=== PATIENT | male | born 1990 | race Caucasian/White ===

== ENCOUNTER 2016-12-02 01:09 | Emergency (ER) | payer OTHER ==
[~2016-12-02] VITALS: Ht 177.8 cm; Wt 99.8 kg
[~2016-12-02 01:09] MED LIST: LEVO500T69 PO; ONDAN4ODT PO; PANT40SU PO; PANT40TA2 PO
--- OUTSIDE RECORDS SUMMARY | 2016-12-02 01:15 | XMS REPORT | Continuity of Care Document ---
Demographics Preferred Language Unknown Marital Status Unknown Judaism Affiliation Unknown Race Unknown Ethnic Group Unknown Author Author [facility] Address Unknown Phone Unavailable Allergies Active Description Code Type Severity Reaction Onset Reported/Identified Relationship to Patient Clinical Status Yes No Known Drug Allergies [id number] Drug Allergy Unknown N/ A 01/16/2012 Medications Problems Date Dx Coded Attending Type Code Diagnosis Diagnosed By 01/16/2012 Ot 276.51 DEHYDRATION 01/16/2012 Ot 590.80 PYELONEPHRITIS NOS 01/16/2012 Ot 787.03 VOMITING ALONE 01/17/2012 590.80 PYELONEPHRITIS UNSPECIFIED 04/07/2015 DREW CLAYTON APRN Ot 780.2 SYNCOPE AND COLLAPSE 12/05/2015 DRWE CLAYTON APRN Ot K52.9 NONINFECTIVE GASTROENTERITIS AND COLITIS 12/05/2015 DREW CLAYTON APRN Ot N28.1 CYST OF KIDNEY, ACQUIRED 12/07/2015 ROSALIND CHOWDARY, ABDI Almendarez Ot A08.4 VIRAL INTESTINAL INFECTION, UNSPECIFIED 12/07/2015 ABDI BOYER MD Ot E86.0 DEHYDRATION Procedures Results Encounters ACCT No. Visit Date/Time Discharge Status Pt. Type Provider Facility Loc./Unit Complaint [id number] 06/06/2012 10:24:00 06/06/2012 23: 59:59 CLS Outpatient [id number] 10/29/2012 15:06:45 RECURRING
[2016-12-02] MEDS ORDERED: HYDR-3874 PO (01:35)
[2016-12-02] MEDS ORDERED: AMOX875T2 PO (01:35)
[2016-12-02] MEDS ORDERED: RX-TRAMADOL 50 MG (ULTRAM) TAB PPK#4 PO STA (01:36)
--- NOTE | 2016-12-02 01:36 | ED EENT ---
History of Present Illness General Chief Complaint: Dental Problems/Pain Stated Complaint: DENTAL PAIN Nursing Triage Note: PT TO ED W/ C/O RT SIDE DENTAL PAIN X4 DAYS. REPORTS UNABLE TO GET INTO DENTIST FOR A MONTH. Source: patient Exam Limitations: no limitations History of Present Illness Time seen by provider: 01:32 Initial Comments Patient complains of right lower tooth pain for the past 4 days. It is getting worse. He denies fevers. Pain is worse with chewing or cold. He has called the dentist but is unable to get in a timely manner. Allergies and Home Medications Allergies Coded Allergies: No Known Drug Allergies (Unverified , 01/16/12) Home Medications Levofloxacin 500 Mg Tab #10 1 EACH PO DAILY Prescribed by: BLANCA SANTOYO MD on 01/16/12 1658 Ondansetron Hcl 4 Mg Tab #10 4 MG PO Q4H Prescribed by: BLANCA SANTOYO MD on 01/16/12 1658 Pantoprazole Sodium 40 Mg Tablet.dr #30 40 MG PO DAILY Prescribed by: KAYLYN AMBRIZ on 12/07/15 0557 Review of Systems Constitutional: no symptoms reportedNo fever Mouth: pain Past Dengdbb-Dwcvum-Wotbii Hx Patient Social History Alcohol Use: Denies Use Recreational Drug Use: No Smoking Status: Never a Smoker Recent Foreign Travel: No Contact w/Someone Who Travel: No Recent Infectious Disease Expo: No Recent Hopitalizations: No Seasonal Allergies Seasonal Allergies: No Surgeries HX Surgeries: No Respiratory Hx Respiratory Disorders: No Cardiovascular Hx Cardiac Disorders: No Neurological Hx Neurological Disorders: No Reproductive System Hx Reproductive Disorders: No Genitourinary Hx Genitourinary Disorders: No Gastrointestinal Hx Gastrointestinal Disorders: Yes Gastrointestinal Disorders: Ulcer Musculoskeletal Hx Musculoskeletal Disorders: No Endocrine Hx Endocrine Disorders: No HEENT HX ENT Disorders: No Cancer Hx Cancer: No Psychosocial Hx Psychiatric Problems: No Integumentary HX Skin/Integumentary Disorder: No Blood Transfusions Hx Blood Disorders: No Adverse Reaction to a Blood Tr: No Reviewed Nursing Assessment Reviewed/Agree w Nursing PMH: Yes Family Medical History Significant Family History: No Pertinent Family Hx Physical Exam Vital Signs Vital Sign - Last 12Hours 12/02/16 01:14 Temp 97.6 Pulse 83 Resp 20 B/P 143/92 Pulse Ox 99 O2 Delivery Room Air General Appearance: WD/WN mild distress other (no facial swelling) Eyes: bilateral eye EOMI, bilateral eye PERRL Mouth/Throat: pharynx normal other (right lower first molar carious with surrounding gingival inflammation, no abscess seen) Neck: suppleNo lymphadenopathy (R), No lymphadenopathy (L) Cardiovascular: regular rate, rhythm no edema Respiratory: lungs clear normal breath sounds Gastrointestinal: soft Neurologic/Psychiatric: alert normal mood/affect Skin: normal color warm/dry Progress/Results/Core Measures Results/Orders Vital Signs/I&O Vital Sign - Last 12Hours 12/02/16 01:14 Temp 97.6 Pulse 83 Resp 20 B/P 143/92 Pulse Ox 99 O2 Delivery Room Air Blood Pressure Mean: 109 Departure Impression Impression: Primary Impression: Pain, dental Disposition: HOME, SELF-CARE Condition: Stable Departure-Patient Inst. Decision time for Depature: 01:34 Referrals: NO,LOCAL PHYSICIAN (PCP/Family) Primary Care Physician Patient Instructions: Dental Pain (DC) Add. Discharge Instructions: See dentist as soon as possible. All discharge instructions reviewed with patient and/or family. Voiced understanding. Scripts Hydrocodone/Acetaminophen (Lorcet 5-325 mg Tablet)1 Each Tablet1-2 Each PO Q4H PRN PAIN #14 TAB Prov:ROBEL JOHNSON MD 12/02/16 Amoxicillin 875 Mg [id number] Mg PO BID #14 TAB Prov:ROBEL JOHNSON MD 12/02/16 ROBEL JOHNSON MD Dec 02, 2016 01:35
[2016-12-02] MEDS ORDERED: AMOXICILLIN 500 MG (POLYMOX) CAP PO STA (01:40)
[2016-12-02 01:45] VITALS: BP 0/0
[2016-12-02] MEDS ORDERED: AMOXICILLIN 250 MG (POLYMOX) CAP PO SCH (01:45)
[2016-12-02] MEDS ORDERED: oxyCODONE/APAP 5/325MG (PERCOCET 5) TABLET PO ONE (01:45)
== END 2016-12-02 01:45 | disposition home or self-care (01) ==
LOC: EDUNIT# 01:09 → ER 01:12
DX: K08.89 Other specified disorders of teeth and supporting structures (principal)
CPT/HCPCS: 99282

== ENCOUNTER 2017-01-19 00:58 | Emergency (ER) | payer OTHER ==
[~2017-01-19] VITALS: Ht 177.8 cm; Wt 76.2 kg
[~2017-01-19 00:58] MED LIST changes: +AMOX875T2 PO; +HYDR-3874 PO
[2017-01-19] MEDS ORDERED: ONDANSETRON 4 MG/2 ML (SDV) Z0FRAN ONE (00:59)
[2017-01-19] MEDS ORDERED: NS IV 1000 ML 1,000 ML ONE (00:59)
[2017-01-19] MEDS ORDERED: PANTOPRAZOLE 40 MG/10 ML (PROTONIX) VIAL ONE (00:59)
[2017-01-19] MEDS ORDERED: NS IV 1000 ML 1,000 ML IV ONE (01:09)
[2017-01-19] MEDS ORDERED: PANTOPRAZOLE 40 MG/10 ML (PROTONIX) VIAL IV ONE (01:15)
[2017-01-19] MEDS ORDERED: ONDANSETRON 4 MG/2 ML (SDV) Z0FRAN IVP ONE (01:15)
[2017-01-19 01:16] LABS: BASOPHILS # (AUTO) 0.1 10^3/uL (0.0-0.1); BASOPHILS % (AUTO) 1 % (0-10); EOSINOPHILS # (AUTO) 0.4 10^3/uL (0.0-0.3); EOSINOPHILS % (AUTO) 3 % (0-10); LYMPHOCYTES # (AUTO) 3.8 X 10^3 (1.0-4.0); LYMPHOCYTES % (AUTO) 28 % (12-44); MEAN CORPUSCULAR HEMOGLOBIN 29 PG (25-34); MEAN CORPUSCULAR HGB CONC 35 G/DL (32-36); MEAN CORPUSCULAR VOLUME 83 FL (80-99); MEAN PLATELET VOLUME 10.6 FL (7.4-10.4); MONOCYTES # (AUTO) 1.4 X 10^3 (0.0-1.0); MONOCYTES % (AUTO) 10 % (0-12); NEUTROPHILS # (AUTO) 7.9 X 10^3 (1.8-7.8); NEUTROPHILS % (AUTO) 58 % (42-75); PLATELET COUNT 360 10^3/uL (130-400); RED CELL DISTRIBUTION WIDTH 12.4 % (10.0-14.5); WHITE BLOOD COUNT 13.7 10^3/uL (4.3-11.0)
[2017-01-19 01:24] LABS: PROTHROMBIN TIME PATIENT 12.5 SEC (12.2-14.7)
[2017-01-19 01:35] LABS: ALANINE AMINOTRANSFERASE 81 U/L (0-55); ALBUMIN 4.6 G/DL (3.2-4.5); AMYLASE 66 U/L (25-125); ANION GAP 14 MMOL/L (5-14); ASPARTATE AMINO TRANSFERASE 34 U/L (5-34); BILIRUBIN,TOTAL 0.5 MG/DL (0.1-1.0); BLOOD UREA NITROGEN 11 MG/DL (7-18); BUN/CREATININE RATIO 10; CALCIUM 9.1 MG/DL (8.5-10.1); CARBON DIOXIDE 21 MMOL/L (21-32); CHLORIDE 107 MMOL/L (98-107); CREATININE SERUM 1.13 MG/DL (0.60-1.30); GFR ESTIMATED > 60; GLUCOSE 102 MG/DL (70-105); LIPASE 25 U/L (8-78); MAGNESIUM 2.2 MG/DL (1.8-2.4); POTASSIUM 3.3 MMOL/L (3.6-5.0); SODIUM 142 MMOL/L (135-145); TOTAL PROTEIN 7.2 G/DL (6.4-8.2)
[2017-01-19 01:40] LABS: ALCOHOL < 10 MG/DL (<10)
[2017-01-19] MEDS ORDERED: NS 100 ML (IVPB) BAG IV ONE (01:45)
[2017-01-19] MEDS ORDERED: IOHEXOL 350 MG/ML 100 ML (OMNIPAQUE 350) VIAL IV ONE (01:45)
--- NOTE | 2017-01-19 02:13 | ED GI ---
General Chief Complaint: Abdominal/GI Problems Stated Complaint: NAUSEA Nursing Triage Note: REPORTS VOMITING INTERMITTANTLY FOR 4 DAYS, HAS HAD ALLERGIES DRAINING ANG COUGHING. INTERMITTANTLY SEES BLOOD IN EMESIS Sepsis Screen: No Definite Risk Source of Information: Patient History of Present Illness Time Seen By Provider: 01:00 Initial Comments PT ARRIVES VIA POV FROM HOME C/O NAUSEA/VOMITING OFF AND ON FOR THE LAST 4 DAYS, VOMITING UP BLOOD AT TIMES HAS HAD THE SAME OFF AND ON FOR A LONG TIME--USUALLY ONLY LASTS A DAY AND THEN RESOLVES. LAST TIME IT WAS THIS BAD WAS A YEAR AGO. HAS NEVER HAD AN EGD OR UPPER GI. PT WAS TOLD HE HAD "ULCERS" BUT HAS NOT TAKEN ANY MEDICATIONS FOR A YEAR, AND HAS NOT FOLLOWED UP WITH ANYONE IN THE LAST YEAR STATES HIS SYMPTOMS WERE BETTER WHEN HE WAS ON THE MEDICATIONS, BUT SOON HE FINISHED TAKING MEDICATIONS, ALL SYMPTOMS RETURNED. SYMPTOMS ARE MUCH WORSE WITH CERTAIN FOODS BUT ATE BAKED CHICKEN, STEAMED BROCCOLI AND CARROTS AND GREEN BEANS TODAY AROUND 1600 PT HAS CONSTANT REFLUX SYMPTOMS--CONSTANT "HEARTBURN" AND CANNOT LAY FLAT DUE TO SEVERE "HEARTBURN" IF HE TRIES TO LAY FLAT. PT C/O ALLERGY SYMPTOMS WITH LOTS OF POST NASAL DRAINAGE, CAUSING HIM TO COUGH, GAG AND THROW UP NO DIARRHEA OR BLACK/BLOODY/TARRY STOOLS NO ABDOMINAL PAIN NO FEVER PCP:DAVY-RAF Allergies and Home Medications Allergies Coded Allergies: No Known Drug Allergies (Unverified , 01/16/12) Home Medications Amoxicillin 875 Mg Tablet, 875 MG PO BID, #14 Prescribed by: ROBEL JOHNSON on 12/02/16 0135 Hydrocodone/Acetaminophen 1 Each Tablet, 1-2 EACH PO Q4H PRN for PAIN, #14 Prescribed by: ROBEL JOHNSON on 12/02/16 0135 Levofloxacin 500 Mg Tab, 1 EACH PO DAILY, #10 Prescribed by: BLANCA SANTOYO MD on 01/16/12 1658 Ondansetron Hcl 4 Mg Tab, 4 MG PO Q4H, #10 Prescribed by: BLANCA SANTOYO MD on 01/16/12 1658 Pantoprazole Sodium 40 Mg Tablet.dr, 40 MG PO DAILY, #30 Ref 3 Prescribed by: KAYLYN AMBRIZ on 12/07/15 0557 Review of Systems Constitutional: no symptoms reported, No chills, No diaphoresis, No dizziness, No fever, No malaise, No weakness EENTM: See HPI, Nose Congestion, Other (POST NASAL DRAINAGE) Respiratory: See HPI, Cough, Denies Shortness of Air, Denies Wheezing Cardiovascular: No Symptoms Reported, Denies Chest Pain Gastrointestinal: See HPI, Denies Abdominal Pain, Denies Blood Streaked Stools , Denies Constipated, Denies Diarrhea, Denies Difficulty Swallowing, Vomiting Genitourinary: No Symptoms Reported Musculoskeletal: no symptoms reported Skin: no symptoms reported Psychiatric/Neurological: No Symptoms Reported Endocrine: No Symptoms Reported Hematologic/Lymphatic: See HPI Past Jimqbfr-Ijeoxm-Marrjx Hx Patient Social History Alcohol Use: Occasionally Uses Recreational Drug Use: No Smoking Status: Never a Smoker Recent Foreign Travel: No Contact w/Someone Who Travel: No Recent Infectious Disease Expo: No Recent Hopitalizations: No Seasonal Allergies Seasonal Allergies: Yes Surgeries HX Surgeries: No Respiratory Hx Respiratory Disorders: No Cardiovascular Hx Cardiac Disorders: No Neurological Hx Neurological Disorders: No Reproductive System Hx Reproductive Disorders: No Genitourinary Hx Genitourinary Disorders: No Gastrointestinal Hx Gastrointestinal Disorders: Yes ("think I had ulcers in grade school"--HAS NEVER HAD EGD OR COLONOSCOPY--EPISODES OF VOMITING BLOOD; ) Gastrointestinal Disorders: Ulcer Musculoskeletal Hx Musculoskeletal Disorders: No Endocrine Hx Endocrine Disorders: No HEENT HX ENT Disorders: No Cancer Hx Cancer: No Psychosocial Hx Psychiatric Problems: No Integumentary HX Skin/Integumentary Disorder: No Blood Transfusions Hx Blood Disorders: No Adverse Reaction to a Blood Tr: No Family Medical History Significant Family History: No Pertinent Family Hx Physical Exam Vital Signs VS - Last 72 Hours, by Label 01/19/17 01:07 Temp 98.5 Pulse 110 Resp 20 B/P (MAP) 139/96 Pulse Ox 97 O2 Delivery Room Air Capillary Refill : Less Than 3 Seconds General Appearance: WD/WN, other (VOMTING/DRY HEAVING WITH SMALL AMOUNT OF BLOOD-STREAKED EMESIS) HEENT: PERRL/EOMI, other (NASAL MUCOSAL EDEMA AND POST NASAL DRAINAGE) Neck: non-tender, full range of motion, supple, normal inspection Respiratory: normal breath sounds, no respiratory distress, no accessory muscle use Cardiovascular: regular rate, rhythm, no murmur Gastrointestinal: normal bowel sounds, non tender, soft, no organomegaly, no pulsatile mass Extremities: normal inspection Back: normal inspection Neurologic/Psychiatric: api architect II-XII nml as tested, no motor/sensory deficits, alert, normal mood/affect, oriented x 3 Skin: normal color, warm/dry Progress/Results/Core Measures Results/Orders Lab Results Laboratory Tests Test 01/19/17 01:08 Range/Units White Blood Count 13.7 H 4.3-11.0 10^3/uL Red Blood Count 5.60 4.35-5.85 10^6/uL Hemoglobin 16.4 13.3-17.7 G/DL Hematocrit 47 40-54 % Mean Corpuscular Volume 83 80-99 FL Mean Corpuscular Hemoglobin 29 25-34 PG Mean Corpuscular Hemoglobin Concent 35 32-36 G/DL Red Cell Distribution Width 12.4 10.0-14.5 % Platelet Count 360 130-400 10^3/uL Mean Platelet Volume 10.6 H 7.4-10.4 FL Neutrophils (%) (Auto) 58 42-75 % Lymphocytes (%) (Auto) 28 12-44 % Monocytes (%) (Auto) 10 0-12 % Eosinophils (%) (Auto) 3 0-10 % Basophils (%) (Auto) 1 0-10 % Neutrophils # (Auto) 7.9 H 1.8-7.8 X 10^3 Lymphocytes # (Auto) 3.8 1.0-4.0 X 10^3 Monocytes # (Auto) 1.4 H 0.0-1.0 X 10^3 Eosinophils # (Auto) 0.4 H 0.0-0.3 10^3/uL Basophils # (Auto) 0.1 0.0-0.1 10^3/uL Prothrombin Time 12.5 12.2-14.7 SEC INR Comment 1.0 0.8-1.4 Activated Partial Thromboplast Time 26 24-35 SEC Sodium Level 142 135-145 MMOL/L Potassium Level 3.3 L 3.6-5.0 MMOL/L Chloride Level 107 98-107 MMOL/L Carbon Dioxide Level 21 21-32 MMOL/L Anion Gap 14 5-14 MMOL/L Blood Urea Nitrogen 11 7-18 MG/DL Creatinine 1.13 0.60-1.30 MG/DL Estimat Glomerular Filtration Rate > 60 BUN/Creatinine Ratio 10 Glucose Level 102 70-105 MG/DL Calcium Level 9.1 8.5-10.1 MG/DL Magnesium Level 2.2 1.8-2.4 MG/DL Total Bilirubin 0.5 0.1-1.0 MG/DL Aspartate Amino Transf (AST/SGOT) 34 5-34 U/L Alanine Aminotransferase (ALT/SGPT) 81 H 0-55 U/L Alkaline Phosphatase 68 40-136 U/L Total Protein 7.2 6.4-8.2 G/DL Albumin 4.6 H 3.2-4.5 G/DL Amylase Level 66 25-125 U/L Lipase 25 8-78 U/L Serum Alcohol < 10 <10 MG/DL My Orders Orders - LEONEL WRIGHT DO Saline Lock/Iv-Start (01/19/17 01:09) Monitor-Rhythm Ecg Trace Only (01/19/17 01:09) Alcohol (01/19/17 01:09) Amylase (01/19/17 01:09) Cbc With Automated Diff (01/19/17 01:09) Comprehensive Metabolic Panel (01/19/17 01:09) Drug Screen Stat (Urine) (01/19/17 01:09) Lipase (01/19/17 01:09) Magnesium (01/19/17 01:09) Protime With Inr (01/19/17 01:09) Partial Thromboplastin Time (01/19/17 01:09) Ua Culture If Indicated (01/19/17 01:09) Acute Abd Series (01/19/17 01:09) Saline Lock/Iv-Start (01/19/17 01:09) Ns Iv 1000 Ml (Sodium Chloride 0.9%) (01/19/17 01:09) Ondansetron Injection (Zofran Injectio (01/19/17 01:15) Pantoprazole Injection (Protonix Injecti (01/19/17 01:15) Ct Chest/Abdomen/Pelvis W (01/19/17 01:14) Iohexol Injection (Omnipaque 350 Mg/Ml 1 (01/19/17 01:45) Ns (Ivpb) (Sodium Chloride 0.9% Ivpb Bag (01/19/17 01:45) Medications Given in ED Current Medications Medications Dose Ordered Sig/Rayna Route Start Time Stop Time Status Last Admin Dose Admin Iohexol 100 ml ONCE ONCE IV 01/19/17 01:45 01/19/17 01:46 DC 01/19/17 01:43 100 ML Ondansetron HCl 8 mg ONCE ONCE IVP 01/19/17 01:15 01/19/17 01:16 DC 01/19/17 01:10 8 MG Pantoprazole 80 mg ONCE ONCE IV 01/19/17 01:15 01/19/17 01:16 DC 01/19/17 01:10 80 MG Sodium Chloride 100 ml ONCE ONCE IV 01/19/17 01:45 01/19/17 01:46 DC 01/19/17 01:43 80 ML Sodium Chloride 1,000 ml @ 0 mls/hr Q0M ONCE IV 01/19/17 01:09 01/19/17 01:12 DC 01/19/17 01:10 0 MLS/HR Vital Signs/I&O Vital Sign - Last 12Hours 01/19/17 01:07 Temp 98.5 Pulse 110 Resp 20 B/P (MAP) 139/96 Pulse Ox 97 O2 Delivery Room Air Blood Pressure Mean: 110 Progress Note : Progress Note NAUSEA RELIEVED WITH ZOFRAN--FEELS MUCH BETTER, AND FEELS COMFORTABLE GOING HOME Diagnostic Imaging Comments ACUTE ABDOMEN XRAYS=--NO ACUTE PROCESS, PENDING RADIOLOGIST REVIEW CT CHEST/ABDOMEN/PELVIS--DISTAL ESOPHAGEAL WALL THICKENING--C/O ESOPHAGITIS, FATTY LIVER. NO OTHER ACUTE PROCESS--PER [facility] VIA FAX @ 0536 Reviewed: Reviewed by Me Departure Impression Impression: Primary Impression: Esophagitis Additional Impression: Allergic rhinitis Disposition: 01 HOME, SELF-CARE Condition: Improved Departure-Patient Inst. Referrals: RAMAKRISHNA POTTS DO [facility] [place] Patient Instructions: Acid Reflux (Gastroesophageal Reflux Disease), Adult (DC) , Seasonal Allergies (DC) Add. Discharge Instructions: NO SPICY, GREASY/HIGH FAT OR ACIDIC FOOD OR DRINK CLEAR LIQUIDS FOR THE NEXT 24 HOURS--WATER, BROTH, JELLO, GATORADE AFTER 24 HOURS, IF YOU ARE BETTER, ADD BRATS DIET TO CLEAR LIQUIDS--BANANAS, RICE, APPLESAUCE, TOAST, SALTINES FOLLOW UP WITH DR. POTTS/ [facility] [place] THIS WEEK FOR FURTHER CARE RETURN TO ER IF WORSE All discharge instructions reviewed with patient and/or family. Voiced understanding. Scripts Sucralfate (Carafate) 1 Gm/10 Ml Oral.susp 1 GM PO QID AC AND HS, #400 ML Prov: LEONEL WRIGHT DO 01/19/17 Pantoprazole Sodium (Protonix) 40 Mg Tablet.dr 40 MG PO DAILY, #15 TAB Prov: LEONEL WRIGHT DO 01/19/17 Fluticasone Propionate (Flonase Allergy Relief) 9.9 Ml [place].susp 2 SPRAYS NS BID, #1 SPRAY Prov: LEONEL WRIGHT DO 01/19/17 Loratadine/Pseudoephedrine (Claritin-D 12 Hour Tablet) 1 Each Tab.er.12h 1 EACH PO BID for Congestion, #30 TAB Prov: LEONEL WRIGHT DO 01/19/17 LEONEL WRIGHT DO Jan 19, 2017 02:13
[2017-01-19] MEDS ORDERED: LORA1TAB59 PO (02:27)
[2017-01-19] MEDS ORDERED: FLUT9.9S NS (02:27)
[2017-01-19] MEDS ORDERED: SUCR1ORA5 PO (02:27)
[2017-01-19] MEDS ORDERED: PANT40TA2 PO (02:27)
[2017-01-19] MEDS ORDERED: RX-ONDANSETRON 4 MG ODT (ZOFRAN) PPK #4 PO STA (02:29)
[2017-01-19] MEDS ORDERED: ONDA4TAB8 PO (02:30)
[2017-01-19 02:40] VITALS: BP 125/76
--- NOTE | 2017-01-19 07:01 | Diagnostic Imaging Report ---
INDICATION: Cough and congestion with nausea and vomiting. FINDINGS: The lungs are clear. There is no free air under the diaphragm. Upright supine abdomen shows no dilated loops of bowel or air-fluid levels. There is normal stool and gas pattern within the colon. No organomegaly or pathologic calcification. IMPRESSION: Normal abdomen series. Dictated by: Dictated on workstation # [id number]
--- NOTE | 2017-01-19 07:45 | Diagnostic Imaging Report ---
PROCEDURE: CT chest, abdomen, and pelvis with contrast. TECHNIQUE: Multiple contiguous axial images were obtained through the chest, abdomen, and pelvis after the administration of intravenous contrast. INDICATION: Nausea and vomiting. Comparison with 12/05/2015. FINDINGS: CT CHEST: The lungs are well-aerated. There are no infiltrates or masses. No pneumothorax or pleural effusion. Aorta and pulmonary artery are well opacified and appear normal. No mediastinal or hilar adenopathy. No bony abnormalities. IMPRESSION: Negative CT chest with contrast. CT ABDOMEN PELVIS: There is good opacification of the aorta and abdominal vessels. Liver appears normal. Gallbladder and bile ducts are normal. Pancreas and spleen are normal. Adrenal glands and kidneys appear normal. Stomach and small bowel are nondistended. The appendix is visualized and normal. Colon shows normal stool and gas pattern. No evidence of diverticulitis. There is no free air free fluid. IMPRESSION: Negative CT scan of the abdomen and pelvis. No significant change has occurred since previous exam. These findings are in agreement with the preliminary report. Dictated by: Dictated on workstation # [id number]
== END 2017-01-19 02:40 | disposition home or self-care (01) ==
LOC: EDUNIT# 01:05 → ER 01:06
DX: R11.2 Nausea with vomiting, unspecified (principal); K20.9 Esophagitis, unspecified; K76.0 Fatty (change of) liver, not elsewhere classified; J30.9 Allergic rhinitis, unspecified
CPT/HCPCS: 36415; 71260; 74022; 74177; 80053; 80320; 82150; 83690; 83735; 85025; 85610; 85730; 96374; 96375

== ENCOUNTER → 2017-02-11 | Outpatient (CLI) | payer OTHER ==
[~2017-02-11] MED LIST changes: +FLUT9.9S NS; +LORA1TAB59 PO; +ONDA4TAB8 PO; +SUCR1ORA5 PO
== END ==
LOC: PREOP 05:37
PROVIDERS: ATTEND Surgery
DX: Z01.818 Encounter for other preprocedural examination (principal); K21.9 Gastro-esophageal reflux disease without esophagitis

== ENCOUNTER → 2017-02-15 | Day surgery (SDC) | payer OTHER ==
[~2017-02-15] VITALS: Ht 177.8 cm; Wt 95.3 kg
[~2017-02-15] MED LIST changes: +HURRICAINE EXT TUBE (BENZOCAINE) XX PRN; +MIDAZOLAM 2 MG/2 ML (VERSED) VIAL ONE; +NS IV 1000 ML 1,000 ML IV STA; +OMEP10SU PO; +OMEP20CA12 PO; +proPOfol 200 MG/20 ML (DIPRIVAN) VIAL IV ONE
[2017-02-15 08:56] VITALS: BP 138/90
--- NOTE | 2017-02-15 08:58 | Progress Note-Pre Operative ---
Pre-Operative Progress Note H&P Reviewed The H&P was reviewed, patient examined and no changes noted. Date H&P Reviewed: February 15, 2017 Time H&P Reviewed: 08:57 Pre-Operative Diagnosis: GERD, Hematemesis RAMAKRISHNA POTTS DO February 15, 2017 8:58 am
--- NOTE | 2017-02-15 09:15 | Progress Note-Post Operative ---
Post-Operative Progess Note Surgeon (s)/Childbirth Educator (s) Surgeon RAMAKRISHNA POTTS DO Childbirth Educator: na Pre-Operative Diagnosis GERD, Hematemesis Post-Operative Diagnosis hiatal hernia, minimal gastritis Procedure & Operative Findings Date of Procedure 02/15/17 Procedure Preformed/Findings egd c biopsies Anesthesia Type per preparer making department Estimated Blood Loss Estimated blood loss (mL): none Specimens/Packing Specimens Removed antrum, ge junction Packing: RAMAKRISHNA King DO February 15, 2017 9:15 am
--- NOTE | 2017-02-15 09:19 | Discharge Inst-Simple/Standard ---
Discharge Inst-Standard Discharge Medications New, Converted or Re-Newed RX: RX on Chart Patient Instructions/Follow Up Plan of Care/Instructions/FU: Take medication as directed. Follow up with Dr. Rogers in 2 weeks. Activity as Tolerated: Yes Discharge Diet: No Restrictions KRISTIE MAHAN APRN February 15, 2017 09:19
[2017-02-15 09:45] VITALS: BP 109/64
[2017-02-15 10:30] VITALS: BP 116/63
[2017-02-15 10:35] VITALS: BP 116/63
--- NOTE | 2017-02-16 01:31 | OPERATIVE REPORT ---
DATE OF SERVICE: 02/15/2017 PREOPERATIVE DIAGNOSES: Gastroesophageal reflux disease and hematemesis. POSTOPERATIVE DIAGNOSES: Hiatal hernia and minimal gastritis. PROCEDURE: EGD with biopsies. SURGEON: Ramakrishna Rogers DO ANESTHESIA: Per LEASE EXAMINER. ESTIMATED BLOOD LOSS: None. COMPLICATIONS: None. INDICATIONS: The patient is a 26-year-old male with history of ulcers when he was younger. He has continued to have problems with reflux and had some hematemesis. When he was younger, he states he had an EGD demonstrating a history of ulcers. The patient restarted Prilosec and then he began feeling significantly better. He was sent for EGD, which he understands risks and benefits for and wished to proceed with procedure. Consent was signed and on the chart. DESCRIPTION OF PROCEDURE: The patient was taken to the endoscopy suite, placed in left lateral recumbent position. Timeout was performed. Scope was inserted in mouth, down into esophagus, stomach and into the duodenum without difficulty. There were no polyps, mass or ulcerations within the duodenum. The scope was slowly retracted back into the stomach demonstrating some slight erythematous changes consistent with a small amount of minimal gastritis. Biopsy of the antrum was obtained. The scope was retroflexed noting a small hiatal hernia. The scope was returned to its normal position and slowly drawn back into the distal esophagus. Biopsies at the GE junction was obtained. There were no polyps, masses or ulcerations. Scope was slowly retracted back until completely removed, noting no other pathology. The patient tolerated the procedure well without any complications. He was taken to recovery room in stable condition. RECOMMENDATIONS: The patient to be on 20 mg of omeprazole daily. He will follow up in the office in two to three weeks to discuss the results and see how he is doing at that time. If he has any problems prior to that, he should be reevaluated at that time. Job ID: [id number] DocumentID: [id number] Dictated Date: 02/15/2017 09:16:50 Fabric Machine Operator Date: 02/15/2017 17:53:48 Dictated By: RAMAKRISHNA ROGERS DO
== END ==
LOC: ENDO 08:32
PROVIDERS: ATTEND Surgery
DX: K21.9 Gastro-esophageal reflux disease without esophagitis (principal); K44.9 Diaphragmatic hernia without obstruction or gangrene; K29.70 Gastritis, unspecified, without bleeding; Z87.11 Personal history of peptic ulcer disease

== ENCOUNTER 2017-03-13 10:59 | Emergency (ER) | payer OTHER ==
[~2017-03-13] VITALS: Ht 180.3 cm; Wt 97.5 kg
[~2017-03-13 10:59] MED LIST changes: -HURRICAINE EXT TUBE (BENZOCAINE) XX PRN; -MIDAZOLAM 2 MG/2 ML (VERSED) VIAL ONE; -NS IV 1000 ML 1,000 ML IV STA; -proPOfol 200 MG/20 ML (DIPRIVAN) VIAL IV ONE
--- NOTE | 2017-03-13 11:26 | ED Fall/Injury ---
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 He states he was not feeling well to not eat breakfast and brought them to the ER so he can be seen but then fell flat on his face in the ER waiting room floor before giving any information. The patient is a little more alert and able to give better information after an hour or so and states this morning he woke up feeling a little bit warm but otherwise okay. Went to work and forgot to take his medicines which include Prilosec, cetirizine and a supplemental fat burner called Leanfire XT. Shortly after he got to work around 9 or 10 he remembered that he forgot his meds because he was having some heartburn so he went home and took them including the supplement that he has been on for now 7 days. Since starting the supplement he says he's felt, warm and flush but he thought that that was intended reaction from the medicine. He states that within half hour to an hour after taking the medicine he started feeling nauseated and threw up 1 when he continued to feel poorly that's when he made his way to the ER with his clients in tow. Patient was still having some nausea at this time. He denies pain shortness of breath, chest pain, diarrhea, rash. Allergies and Home Medications Allergies Coded Allergies: No Known Drug Allergies (Unverified , 01/16/12) Home Medications Fluticasone Propionate 9.9 Ml [place].susp, 2 SPRAYS NS BID, #1 Prescribed by: LEONEL WRIGHT on 01/19/17226 Loratadine/Pseudoephedrine 1 Each Tab.er.12h, 1 EACH PO BID, #30 Prescribed by: LEONEL WRIGHT on 01/19/17 022 Omeprazole 20 Mg Capsule.dr, 20 MG PO DAILY, #30 Ref 6 Prescribed by[facility] 02/[facility]/17 0918 Constitutional: see HPI (initially unable to obtain a full review of systems.) Eyes: Denies Blurred Vision, Denies Inflammation, Denies Pain Ears, Nose, Mouth, Throat: denies ear pain, denies nose pain Respiratory: No cough, No short of breath, No wheezing Cardiovascular: No chest pain, No edema, No palpitations, No syncope, No vascular heart diseas Gastrointestinal: No abdominal pain, No loss of appetite Genitourinary: No discharge, No dysuria, No frequency, No hematuria, No incontinence Musculoskeletal: No back pain, No joint pain, No joint swelling, No muscle pain Skin: No pruritus, No rash Past Esdpjyx-Ctjcvj-Zyvrzt Hx Patient Social History Alcohol Use: Occasionally Uses Recreational Drug Use: No Smoking Status: Never a Smoker Recent Hopitalizations: No Immunizations Up To Date Tetanus Booster (TDap): Unknown Date of Influenza Vaccine: Jul 18, 2016 Seasonal Allergies Seasonal Allergies: Yes Surgeries HX Surgeries: No Respiratory Hx Respiratory Disorders: No Cardiovascular Hx Cardiac Disorders: No Neurological Hx Neurological Disorders: No Reproductive System Hx Reproductive Disorders: No Sexually Transmitted Disease: No HIV/AIDS: No Genitourinary Hx Genitourinary Disorders: No Gastrointestinal Hx Gastrointestinal Disorders: Yes Gastrointestinal Disorders: Ulcer Musculoskeletal Hx Musculoskeletal Disorders: No Endocrine Hx Endocrine Disorders: No HEENT HX ENT Disorders: No Loss of Vision: Denies Hearing Impairment: Denies Cancer Hx Cancer: No Psychosocial Hx Psychiatric Problems: No Integumentary HX Skin/Integumentary Disorder: No Blood Transfusions Hx Blood Disorders: No Adverse Reaction to a Blood Tr: No Family Medical History Significant Family History: No Pertinent Family Hx Physical Exam Vital Signs Vital Sign - Last 12Hours 03/13/17 10:59 Temp 96.9 Pulse 91 B/P (MAP) 118/82 Pulse Ox 98 O2 Delivery Room Air Capillary Refill : General Appearance: WD/WN HEENT: PERRL/EOMI, normal ENT inspection, TMs normal, pharynx normal Neck: non-tender, full range of motion, supple, normal inspection Cardiovascular: normal peripheral pulses, regular rate, rhythm, no edema, no gallop, no JVD, no murmur Respiratory: chest non-tender, lungs clear, normal breath sounds, no respiratory distress, no accessory muscle use Peripheral Pulses: 4+ Dorsalis Pedis (R), 4+ Left Dors-Pedis (L), 4+ Radial Pulses (R), 4+ Radial Pulses (L) Gastrointestinal: normal bowel sounds, non tender, soft, no organomegaly, no pulsatile mass Pelvic: normal external exam, normal adnexa, no cerv. motion tender, no masses Back: normal inspection, no CVA tenderness, no vertebral tenderness Extremities: normal range of motion, non-tender, normal inspection, no pedal edema, no calf tenderness, normal capillary refill Skin: rash (round circumscribed patches consistent with tinea corpus) Lymphatic: no adenopathy [place] Score Best Eye Response: (2) Open to Pain Best Verbal Response: (2) Incomprehsible Sounds Best Motor Response: (5) Localizes to Pain [place] Total: 9 Progress/Results/Core Measures Results/Orders Lab Results Laboratory Tests Test 03/13/17 11:07 03/13/17 11:14 03/13/17 11:44 03/13/17 11:57 Range/Units Urine Color YELLOW Urine Clarity CLEAR Urine pH 6.5 5-9 Urine Specific [place] 1.015 L 1.016-1.022 Urine Protein NEGATIVE NEGATIVE Urine Glucose (UA) NEGATIVE NEGATIVE Urine Ketones NEGATIVE NEGATIVE Urine Nitrite NEGATIVE NEGATIVE Urine Bilirubin NEGATIVE NEGATIVE Urine Urobilinogen NORMAL NORMAL MG/DL Urine Leukocyte Esterase NEGATIVE NEGATIVE Urine RBC (Auto) 2+ H NEGATIVE Urine RBC 0-2 /HPF Urine WBC NONE /HPF Urine Crystals NONE /LPF Urine Bacteria NEGATIVE /HPF Urine Casts NONE /LPF Urine Mucus NEGATIVE /LPF Urine Culture Indicated NO Urine Opiates Screen NEGATIVE NEGATIVE Urine Oxycodone Screen NEGATIVE NEGATIVE Urine Methadone Screen NEGATIVE NEGATIVE Urine Propoxyphene Screen NEGATIVE NEGATIVE Urine Barbiturates Screen NEGATIVE NEGATIVE Ur Tricyclic Antidepressants Screen NEGATIVE NEGATIVE Urine Phencyclidine Screen NEGATIVE NEGATIVE Urine Amphetamines Screen NEGATIVE NEGATIVE Urine Methamphetamines Screen NEGATIVE NEGATIVE Urine Benzodiazepines Screen NEGATIVE NEGATIVE Urine Cocaine Screen NEGATIVE NEGATIVE Urine Cannabinoids Screen NEGATIVE NEGATIVE White Blood Count 9.0 4.3-11.0 10^3/uL Red Blood Count 5.84 4.35-5.85 10^6/uL Hemoglobin 16.7 13.3-17.7 G/DL Hematocrit 49 40-54 % Mean Corpuscular Volume 84 80-99 FL Mean Corpuscular Hemoglobin 29 25-34 PG Mean Corpuscular Hemoglobin Concent 34 32-36 G/DL Red Cell Distribution Width 12.5 10.0-14.5 % Platelet Count 297 130-400 10^3/uL Mean Platelet Volume 11.0 H 7.4-10.4 FL Neutrophils (%) (Auto) 54 42-75 % Lymphocytes (%) (Auto) 30 12-44 % Monocytes (%) (Auto) 11 0-12 % Eosinophils (%) (Auto) 4 0-10 % Basophils (%) (Auto) 1 0-10 % Neutrophils # (Auto) 4.9 1.8-7.8 X 10^3 Lymphocytes # (Auto) 2.7 1.0-4.0 X 10^3 Monocytes # (Auto) 1.0 0.0-1.0 X 10^3 Eosinophils # (Auto) 0.3 0.0-0.3 10^3/uL Basophils # (Auto) 0.1 0.0-0.1 10^3/uL Erythrocyte Sedimentation Rate 1 0-15 MM/HR Prothrombin Time 11.6 L 12.2-14.7 SEC INR Comment 0.9 0.8-1.4 Activated Partial Thromboplast Time 28 24-35 SEC D-Dimer 0.27 0.00-0.49 UG/ML Sodium Level 140 135-145 MMOL/L Potassium Level 3.6 3.6-5.0 MMOL/L Chloride Level 106 98-107 MMOL/L Carbon Dioxide Level 24 21-32 MMOL/L Anion Gap 10 5-14 MMOL/L Blood Urea Nitrogen 10 7-18 MG/DL Creatinine 1.04 0.60-1.30 MG/DL Estimat Glomerular Filtration Rate > 60 BUN/Creatinine Ratio 10 Glucose Level 97 70-105 MG/DL Calcium Level 9.6 8.5-10.1 MG/DL Phosphorus Level 1.2 L 2.3-4.7 MG/DL Magnesium Level 2.2 1.8-2.4 MG/DL Total Bilirubin 0.5 0.1-1.0 MG/DL Direct Bilirubin 0.2 0.0-0.3 MG/DL Indirect Bilirubin 0.3 MG/DL Aspartate Amino Transf (AST/SGOT) 49 H 5-34 U/L Alanine Aminotransferase (ALT/SGPT) 110 H 0-55 U/L Alkaline Phosphatase 62 40-136 U/L Total Creatine Kinase 249 H 30-200 U/L Troponin I < 0.30 <0.30 NG/ML B-Type Natriuretic Peptide < 10.0 <100.0 PG/ML Total Protein 7.3 6.4-8.2 G/DL Albumin 4.3 3.2-4.5 G/DL Amylase Level 53 25-125 U/L Lipase 24 8-78 U/L Thyroid Stimulating Hormone (TSH) 1.52 0.35-4.94 UIU/ML Salicylates Level < 5.0 L 5.0-20.0 MG/DL Acetaminophen Level < 10 L 10-30 UG/ML Serum Alcohol < 10 <10 MG/DL Blood Gas Puncture Site RT RADIAL Blood Gas Patient Temperature 96.6 Arterial Blood pH 7.40 7.37-7.43 Arterial Blood Partial Pressure CO2 41 35-45 MMHG Arterial Blood Partial Pressure O2 71 L 79-93 MMHG Arterial Blood HCO3 25 23-27 MMOL/L Arterial Blood Total CO2 26.4 21.0-31.0 MMOL/L Arterial Blood Oxygen Saturation 96 94-100 % Arterial Blood Base Excess 0.5 -2.5-2.5 MMOL/L Paresh Test YES-POS Blood Gas Ventilator Setting NO Blood Gas Inspired Oxygen ROOM AIR Lactic Acid Level 1.31 0.50-2.00 MMOL/L Ammonia 28 11-32 UMOL/L Test 03/13/17 14:20 Range/Units Sodium Level 142 135-145 MMOL/L Potassium Level 4.1 3.6-5.0 MMOL/L Chloride Level 108 H 98-107 MMOL/L Carbon Dioxide Level 24 21-32 MMOL/L Anion Gap 10 5-14 MMOL/L Blood Urea Nitrogen 8 7-18 MG/DL Creatinine 0.96 0.60-1.30 MG/DL Estimat Glomerular Filtration Rate > 60 BUN/Creatinine Ratio 8 Glucose Level 90 70-105 MG/DL Calcium Level 8.8 8.5-10.1 MG/DL Total Bilirubin 0.5 0.1-1.0 MG/DL Aspartate Amino Transf (AST/SGOT) 50 H 5-34 U/L Alanine Aminotransferase (ALT/SGPT) 101 H 0-55 U/L Alkaline Phosphatase 55 40-136 U/L Total Protein 6.6 6.4-8.2 G/DL Albumin 3.9 3.2-4.5 G/DL Micro Results Microbiology 03/13/17 Influenza Types A,B Antigen (ADIS) - Final, Complete My Orders Orders - LUIS SHERMAN Ct Head/Face/Cervical Wo (03/13/17 ) Acetaminophen (03/13/17 11:31) Alcohol (03/13/17 11:31) Amylase (03/13/17 11:31) Arterial Blood Gas (03/13/17 11:31) BNP (03/13/17 11:31) Cbc With Automated Diff (03/13/17 11:31) Comprehensive Metabolic Panel (03/13/17:) Fibrin Degradation Products (03/13/17:) Drug Screen Stat (Urine) (03/13/17 11:31) Lactic Acid Analyzer (03/13/17:) Lipase (03/13/17:31) Magnesium (03/13/17:) Protime With Inr (03/13/17:) Partial Thromboplastin Time (03/13/17 11:) Salicylate (03/13/17:) Thyroid Stimulating Hormone (03/13/17:) Troponin I (03/13/17:) Ua Culture If Indicated (03/13/17:) Blood Culture (03/13/17:) Phosphorus (03/13/17:) Erythrocyte Sedimentation Rate (03/13/17:) Chest 1 View, Ap/Pa Only (03/13/17:31) Saline Lock/Iv-Start (03/13/17 11:31) Ns Iv 500 Ml (Sodium Chloride 0.9%) (03/13/17 11:31) Ammonia (03/13/17 11:40) Influenza A And B Antigens (03/13/17 11:50) Ondansetron Injection (Zofran Injectio (03/13/17 12:00) Ns Iv 1000 Ml (Sodium Chloride 0.9%) (03/13/17 13:45) Comprehensive Metabolic Panel (03/13/17 13:49) Bilirubin, Total And Direct (03/13/17 11:14) Creatine Kinase (03/13/17 11:14) Medications Given in ED Current Medications Medications Dose Ordered Sig/Rayna Route Start Time Stop Time Status Last Admin Dose Admin Ondansetron HCl 4 mg ONCE ONCE IVP 03/13/17 12:00 03/13/17 12:01 DC 03/13/17 12:31 4 MG Sodium Chloride 500 ml @ 0 mls/hr Q0M ONCE IV 03/13/17 11:31 03/13/17 11:35 DC 03/13/17 12:31 100 MLS/HR Vital Signs/I&O Vital Sign - Last 12Hours 03/13/17 10:59 Temp 96.9 Pulse 91 B/P (MAP) 118/82 Pulse Ox 98 O2 Delivery Room Air Progress Note #1: Time: 13:26 Progress Note Patient was initially found downward a witnessed collapsed in the ER lobby. His ABCs were intact and a c-collar was placed and he was brought into the ER where he was given a Calderon catheter and IV fluids as well as labs were drawn. His vitals were always within normal limits except for his temperature being a little bit on the low side 96.9. His laboratory was fairly unremarkable except for some elevated transaminases. He was observed and after an hour or so he is began to wake up and answer more responsively. He is not having any pain, but he was nauseated still so we gave him Zofran. CT of his head neck and face was reviewed and found to be unremarkable area as he became more alert and responsive we cleared his c-collar successfully. His girlfriend arrived about the time he was giving a better history that included getting up going to work this morning not working out but did take a supplement that he's been on for 7 days. Poison control recommends more fluids and recheck CMP to see if his transaminases improved and to especially keep an eye on his kidneys given some ingredients in Leanfire XT. Progress Note #2: Time: 14:24 Progress Note Poison control recommends we add a CK and a bilirubin level. Bilirubin levels were normal however the CK level was marginally elevated at 250 of her limit of normal being 200. 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 Progress Note #3: Time: 15:08 Progress Note Patient's repeat labs after getting 1/2 L of normal saline were reviewed. The AST was stable at 49 now 50. The LT was stable at 110 now down to 101. Creatinine function same 0.9 versus 1.04. Patient feels much better and is willing to go home. The phosphorous being low early on may be related to his recent nausea and vomiting prior to arrival. The patient feels like he can eat so it would be reasonable to replace by diet. ECG Initial ECG Impression Date: Mar 13, 2017 Initial ECG Impression Time: 11:10 Initial ECG Rate: 80 Initial ECG Rhythm: Normal Sinus Initial ECG Intervals: Normal Initial ECG Intervals ok KS, QRS, QTC Initial ECG Impression: Normal Initial ECG Comparisson: No Previous ECG Available Comment No evidence of ST changes or pathologic signs noted. Diagnostic Imaging Diagonstic Imaging: Xray Plain Films/CT/US/NM/MRI: chest Comments unremarkable CXR. NAME: LENNIE DEE [facility] REC#: [id number] PHYSICIAN: LUIS SHERMAN MD CC: ADELE STACK; LUIS SHERMAN Page 1 of 1 RADIOLOGY REPORT VIA [place], [place] CC: ADELE STACK; LUIS SHERMAN Page 1 of 1 RADIOLOGY REPORT NAME: LENNIE DEE [facility] REC#: [id number] PT STATUS: REG ER : 1990 PHYSICIAN: LUIS SHERMAN MD ADMIT DATE: 03/13/17/ER Signed Date of Exam: 03/13/17 CHEST 1 VIEW, AP/PA ONLY INDICATION: Fall. FINDINGS: The heart size is normal. There is mild venous congestion. There is no pleural effusion or pneumothorax. IMPRESSION: Mild venous congestion some of which may be due to poor inspiration, otherwise unremarkable. Dictated by: Dictated on workstation # [id number] Dict: 03/13/17 1153 Trans: 03/13/17 1213 Interpreted by: ADELE STACK Electronically signed by: ADELE STACK 03/13/17 1213 Reviewed: Reviewed by Me Diagonstic Imaging: CT Plain Films/CT/US/NM/MRI: facial bones, c-spine, head Comments No fractures, midline shift or bleeds. VIA [facility], [facility]. [place], [place] NAME: LENNIE DEE [facility] REC#: [id number] PT STATUS: REG ER : 1990 PHYSICIAN: LUIS SHERMAN MD ADMIT DATE: 03/13/17/ER Draft Date of Exam:03/13/17 CT HEAD/FACE/CERVICAL WO PROCEDURE: CT head, face, and cervical spine without contrast. TECHNIQUE: Multiple contiguous axial images were obtained through the head, neck, and facial bones without the use of intravenous contrast. Sagittal and coronal reformations through the cervical spine and facial bones were also performed. INDICATION: Fell, head, face and neck pain. CT HEAD: There is no mass, shift of the midline or hemorrhage to suggest an acute intracranial abnormality. The ventricles are not abnormally dilated and stable in size when compared to the prior exam of 04/07/2015. The bone windows show no sign of a fracture or for destructive lesion. The orbits are symmetrical and within normal limits. The sinuses are generally clear. IMPRESSION: There is no evidence for an acute intracranial abnormality. When compared to the prior study, there does not appear to have been any adverse change. CT FACIAL BONES: The nasal bone, nasal spine, orbital rims, zygomatic arches and mandible are intact. As noted on the previous CT facial bone exam of 04/07/2015, there is a mild mucosal thickening of the right maxillary antrum and moderate mucosal thickening of the left maxillary antrum with a small retention cyst along the lateral wall of the left maxillary antrum. There is also mild mucosal thickening of the ethmoid sinuses and the left frontal sinus. Sphenoid sinus is generally clear. The orbits are symmetrical and within normal limits. IMPRESSION: 1. There is no evidence for acute bony abnormality. 2. There is mild/moderate sinusitis. CT CERVICAL SPINE: The reconstructed parasagittal images show the vertebral body heights and alignment to be within normal limits and similar to the previous exam of 04/07/2015. The intervertebral disc spaces are well-maintained. There is no fracture or acute bony abnormality identified. There is no sign of retropharyngeal edema. The thyroid gland is unremarkable. Lung apices are clear. IMPRESSION: There is no evidence for an acute bony abnormality. Dictated on workstation # [id number] Dict: 03/13/17 1138 Trans: 03/13/17 1204 [id number] Interpreted by: INDRA MORGAN MD Electronically signed by: Reviewed: Reviewed by Me Consults Consults : Consults Notes Poison Control. Leanfire XT: Known to contain green tea leaf extract, cayenne pepper extract, caffeine anhydrous 150 mg per dose, l-carnitine and others. They recommended we watch his kidney function give him another liter fluids and recheck the CMP. They're going to look up a paper on this supplement and will call us back if they have any new information. Critical Care Note Critical Care Start Time: 10:45 Stop Time: 11:10 Total Time (minutes) 25 Departure Impression Impression: Primary Impression: Episode of syncope Qualified Codes: R55 - Syncope and collapse Additional Impressions: Rhabdomyolysis Qualified Codes: M62.82 - Rhabdomyolysis Elevated transaminase level Disposition: 01 HOME, SELF-CARE Condition: Improved Departure-Patient Inst. Referrals: NO,LOCAL PHYSICIAN (PCP/Family) Primary Care Physician Patient Instructions: Rhabdomyolysis (DC) Add. Discharge Instructions: Drink lots of fluids. Immediately discontinue use of Leanfire XT. Follow-up with her primary care physician as needed. Return to the ER if you're having new or worsening symptoms. LUIS SHERMAN Mar 13, 2017 11:26
[2017-03-13] MEDS ORDERED: NS IV 500 ML 500 ML IV ONE (11:31)
[2017-03-13 11:42] LABS: BASOPHILS # (AUTO) 0.1 10^3/uL (0.0-0.1); BASOPHILS % (AUTO) 1 % (0-10); EOSINOPHILS # (AUTO) 0.3 10^3/uL (0.0-0.3); EOSINOPHILS % (AUTO) 4 % (0-10); LYMPHOCYTES # (AUTO) 2.7 X 10^3 (1.0-4.0); LYMPHOCYTES % (AUTO) 30 % (12-44); MEAN CORPUSCULAR HEMOGLOBIN 29 PG (25-34); MEAN CORPUSCULAR HGB CONC 34 G/DL (32-36); MEAN CORPUSCULAR VOLUME 84 FL (80-99); MONOCYTES % (AUTO) 11 % (0-12); NEUTROPHILS # (AUTO) 4.9 X 10^3 (1.8-7.8); NEUTROPHILS % (AUTO) 54 % (42-75); PLATELET COUNT 297 10^3/uL (130-400); RED BLOOD COUNT 5.84 10^6/uL (4.35-5.85); RED CELL DISTRIBUTION WIDTH 12.5 % (10.0-14.5)
[2017-03-13 11:47] LABS: INR 0.9 (0.8-1.4); PROTHROMBIN TIME PATIENT 11.6 SEC (12.2-14.7)
[2017-03-13 11:52] LABS: BILIRUBIN,URINE NEGATIVE (NEGATIVE); KETONES,URINE NEGATIVE (NEGATIVE); LEUKOCYTE ESTERASE ,URINE NEGATIVE (NEGATIVE); NITRITE,URINE NEGATIVE (NEGATIVE); PH,URINE 6.5 (5-9); PROTEIN,URINE NEGATIVE (NEGATIVE); UROBILINOGEN,URINE NORMAL (NORMAL)
[2017-03-13 11:55] LABS: ABG BASE EXCESS 0.5 MMOL/L (-2.5-2.5); ABG HCO3 25 MMOL/L (23-27); ABG OXYGEN SATURATION 96 % (94-100); ABG PCO2 41 MMHG (35-45); ABG PO2 71 MMHG (79-93); ABG TCO2 26.4 MMOL/L (21.0-31.0); ALLENS TEST YES-POS; PATIENT TEMP 96.6
[2017-03-13 11:56] LABS: ALANINE AMINOTRANSFERASE 110 U/L (0-55); ALBUMIN 4.3 G/DL (3.2-4.5); AMYLASE 53 U/L (25-125); ANION GAP 10 MMOL/L (5-14); ASPARTATE AMINO TRANSFERASE 49 U/L (5-34); BILIRUBIN,TOTAL 0.5 MG/DL (0.1-1.0); BLOOD UREA NITROGEN 10 MG/DL (7-18); BUN/CREATININE RATIO 10; CALCIUM 9.6 MG/DL (8.5-10.1); CARBON DIOXIDE 24 MMOL/L (21-32); CHLORIDE 106 MMOL/L (98-107); CREATININE SERUM 1.04 MG/DL (0.60-1.30); GFR ESTIMATED > 60; GLUCOSE 97 MG/DL (70-105); LIPASE 24 U/L (8-78); MAGNESIUM 2.2 MG/DL (1.8-2.4); PHOSPHORUS 1.2 MG/DL (2.3-4.7); POTASSIUM 3.6 MMOL/L (3.6-5.0); SALICYLATE < 5.0 MG/DL (5.0-20.0); SODIUM 140 MMOL/L (135-145); TOTAL PROTEIN 7.3 G/DL (6.4-8.2)
[2017-03-13 11:59] LABS: ACETAMINOPHEN < 10 UG/ML (10-30); ALCOHOL < 10 MG/DL (<10)
[2017-03-13] MEDS ORDERED: ONDANSETRON 4 MG/2 ML (SDV) Z0FRAN IVP ONE (12:00)
--- NOTE | 2017-03-13 12:01 | Diagnostic Imaging Report ---
INDICATION: Fall. FINDINGS: The heart size is normal. There is mild venous congestion. There is no pleural effusion or pneumothorax. IMPRESSION: Mild venous congestion some of which may be due to poor inspiration, otherwise unremarkable. Dictated by: Dictated on workstation # [id number]
--- NOTE | 2017-03-13 12:04 | Diagnostic Imaging Report ---
PROCEDURE: CT head, face, and cervical spine without contrast. TECHNIQUE: Multiple contiguous axial images were obtained through the head, neck, and facial bones without the use of intravenous contrast. Sagittal and coronal reformations through the cervical spine and facial bones were also performed. INDICATION: Fell, head, face and neck pain. CT HEAD: There is no mass, shift of the midline or hemorrhage to suggest an acute intracranial abnormality. The ventricles are not abnormally dilated and stable in size when compared to the prior exam of 04/07/2015. The bone windows show no sign of a fracture or for destructive lesion. The orbits are symmetrical and within normal limits. The sinuses are generally clear. IMPRESSION: There is no evidence for an acute intracranial abnormality. When compared to the prior study, there does not appear to have been any adverse change. CT FACIAL BONES: The nasal bone, nasal spine, orbital rims, zygomatic arches and mandible are intact. As noted on the previous CT facial bone exam of 04/07/2015, there is a mild mucosal thickening of the right maxillary antrum and moderate mucosal thickening of the left maxillary antrum with a small retention cyst along the lateral wall of the left maxillary antrum. There is also mild mucosal thickening of the ethmoid sinuses and the left frontal sinus. Sphenoid sinus is generally clear. The orbits are symmetrical and within normal limits. IMPRESSION: 1. There is no evidence for acute bony abnormality. 2. There is mild/moderate sinusitis. CT CERVICAL SPINE: The reconstructed parasagittal images show the vertebral body heights and alignment to be within normal limits and similar to the previous exam of 04/07/2015. The intervertebral disc spaces are well-maintained. There is no fracture or acute bony abnormality identified. There is no sign of retropharyngeal edema. The thyroid gland is unremarkable. Lung apices are clear. IMPRESSION: There is no evidence for an acute bony abnormality. Dictated by: Dictated on workstation # [id number]
[2017-03-13 12:05] LABS: ERYTHROCYTE SEDIMENTATION RATE 1 MM/HR (0-15)
[2017-03-13 12:16] LABS: THYROID STIMULATING HORMONE 1.52 UIU/ML (0.35-4.94); TROPONIN I < 0.30 NG/ML (<0.30)
[2017-03-13] MEDS ORDERED: NS IV 1000 ML 1,000 ML IV SCH (13:45)
[2017-03-13 14:09] LABS: BILIRUBIN,DIRECT 0.2 MG/DL (0.0-0.3); BILIRUBIN,INDIRECT 0.3 MG/DL; CREATINE KINASE 249 U/L (30-200)
[2017-03-13 15:01] LABS: ALANINE AMINOTRANSFERASE 101 U/L (0-55); ALBUMIN 3.9 G/DL (3.2-4.5); ANION GAP 10 MMOL/L (5-14); ASPARTATE AMINO TRANSFERASE 50 U/L (5-34); BILIRUBIN,TOTAL 0.5 MG/DL (0.1-1.0); BLOOD UREA NITROGEN 8 MG/DL (7-18); BUN/CREATININE RATIO 8; CALCIUM 8.8 MG/DL (8.5-10.1); CARBON DIOXIDE 24 MMOL/L (21-32); CHLORIDE 108 MMOL/L (98-107); CREATININE SERUM 0.96 MG/DL (0.60-1.30); GFR ESTIMATED > 60; GLUCOSE 90 MG/DL (70-105); POTASSIUM 4.1 MMOL/L (3.6-5.0); SODIUM 142 MMOL/L (135-145); TOTAL PROTEIN 6.6 G/DL (6.4-8.2)
[2017-03-13 15:40] VITALS: BP 121/68
== END 2017-03-13 15:40 | disposition home or self-care (01) ==
LOC: EDUNIT# 10:59 → ER 11:00
DX: R55 Syncope and collapse (principal); M62.82 Rhabdomyolysis; R74.0 Nonspecific elevation of levels of transaminase and lactic acid dehydrogenase [LDH]
CPT/HCPCS: 36415; 51702; 70450; 70486; 71010; 72125; 80053; 80306; 80320; 80329; 81000; 82140; 82150; 82247; 82248; 82550; 82805; 83605; 83690; 83735; 83880; 84100; 84443; 84484; 85025; 85379; 85610; 85652; 85730; 87040; 87804